=== PATIENT | female | born 2000 | race African-American/Black ===

== ENCOUNTER 2021-04-17 05:05 | Inpatient (IN) | payer MEDICAID, OTHER ==
[~2021-04-17] VITALS: Ht 149.9 cm; Wt 51.7 kg
[2021-04-17 07:15] LABS: CLARITY URINE CLOUDY (CLEAR); COLOR URINE YELLOW (YELLOW); KETONES URINE NEGATIVE (NEGATIVE); LEUKOCYTE ESTERASE URINE 3+ (NEGATIVE); NITRITE URINE NEGATIVE (NEGATIVE); OCCULT BLOOD URINE 1+ (NEGATIVE); PROTEIN URINE NEGATIVE (NEGATIVE); SPECIFIC GRAVITY URINE 1.007 (1.005-1.030)
[2021-04-17] MEDS: LACTATED RINGERS 1,000 ML IV SCH ×4 (07:21→22:23)
[2021-04-17] MEDS ORDERED: CEFAZOLIN 2,000 MG in DEXT 5% WATER 100 ML IV SCH ×2 (09:30→14:00)
[2021-04-17] MEDS: TERBUTALINE SULFATE 1MG/ML VIAL SUBCUT PRN ×2 (12:03→12:39)
[2021-04-18] MEDS: LACTATED RINGERS 1,000 ML IV SCH ×2 (03:39→21:06)
[2021-04-18] MEDS ORDERED: LIDOCAINE HCL 1% 20ML VIAL (Pyxis) INJ INFIL SCH (08:30)
[2021-04-18] MEDS ORDERED: METHYLERGONOVINE MALEATE 0.2 MG/ML IM PRN (08:30)
[2021-04-18] MEDS ORDERED: MISOPROSTOL 100MCG TABLET VG SCH (08:30)
[2021-04-18] MEDS ORDERED: CARBOPROST TROMETHAMINE 250 MCG/ML AMPUL IM PRN (08:30)
[2021-04-18] MEDS ORDERED: DEXT 5%/LR + PITOCIN 20UNITS/L 1,000 ML IV SCH (08:30)
[2021-04-18] MEDS ORDERED: NALOXONE HCL 0.4 MG/ML 1ML VIAL IM PRN (08:30)
[2021-04-18] MEDS ORDERED: BUTORPHANOL TARTRATE 2 MG/ML VIAL IV PRN (08:30)
[2021-04-18] MEDS ORDERED: PENICILLIN G POTASSIUM 5 MMU in DEXT 5% WATER 100 ML IV SCH (09:00)
[2021-04-18] MEDS ORDERED: LIDOCAINE HCL 2%/EPINEPHRINE 1:100,000 20 ML VIAL INFIL ONE (10:06)
[2021-04-18] MEDS ORDERED: EPHEDRINE SULFATE 50MG/ML VIAL ONE (10:06)
[2021-04-18 10:57] LABS: BASOPHILS % 0.3 % (0.0-2.0); EOSINOPHILS % 1.2 % (0.0-5.0); HEMOGLOBIN. 10.5 g/dL (12.0-16.0); LYMPHOCYTES % 19.7 % (20.0-50.0); MEAN CORPUSCULAR HEMOGLOBIN 30.8 pg (28.0-32.0); MEAN CORPUSCULAR VOLUME 90.8 fL (81.0-99.0); MEAN PLATELET VOLUME 7.3 fl (7.4-10.4); MONOCYTES % 5.4 % (2.0-8.0); NEUTROPHILS % 73.4 % (40.0-76.0); PLATELET 302 x1000/uL (130-400); RED BLOOD CELL COUNT 3.42 mill/uL (4.2-5.4)
[2021-04-18 11:00] LABS: CLARITY URINE CLOUDY (CLEAR); COLOR URINE YELLOW (YELLOW); KETONES URINE 2+ (NEGATIVE); LEUKOCYTE ESTERASE URINE 3+ (NEGATIVE); NITRITE URINE NEGATIVE (NEGATIVE); OCCULT BLOOD URINE TRACE (NEGATIVE); PROTEIN URINE NEGATIVE (NEGATIVE); SPECIFIC GRAVITY URINE 1.006 (1.005-1.030)
[2021-04-18 11:09] LABS: PARTIAL THROMBOPLASTIN TIME 27.2 sec (23.4-31.0); PROTHROMBIN TIME 11.1 sec (9.6-11.0)
[2021-04-18 11:15] LABS: *AMPHETAMINES SCREEN URINE NEGATIVE (NEGATIVE); *BARBITURATES SCREEN URINE NEGATIVE (NEGATIVE); *BENZODIAZEPINES SCREEN URINE NEGATIVE (NEGATIVE); *COCAINE SCREEN URINE NEGATIVE (NEGATIVE)
[2021-04-18] MEDS ORDERED: ROPIVACAINE HCL/PF EPIDURAL 200 ML EP SCH (11:15)
[2021-04-18 11:16] LABS: CANNABINOID URINE SCREEN NEGATIVE (NEGATIVE); METHADONE URINE SCREEN NEGATIVE (NEGATIVE); OPIATES URINE SCREEN NEGATIVE (NEGATIVE); PHENCYCLIDINE URINE SCREEN NEGATIVE (NEGATIVE)
[2021-04-18 11:35] LABS: HEPATITIS B SURFACE ANTIGEN NEGATIVE
[2021-04-18] MEDS ORDERED: PNV1TABL50 MT (11:59)
[2021-04-18] MEDS ORDERED: AZITHROMYCIN 500 MG in DEXT 5% WATER 250 ML IV SCH (12:00)
[2021-04-18] MEDS: PENICILLIN G POTASSIUM 2.5 MMU in DEXTROSE 5% WATER 50 ML IV SCH ×2 (16:35→21:07)
[2021-04-18] MEDS ORDERED: FENTANYL CITRATE/PF 50MCG/ML 2ML VIAL ONE (19:24)
[2021-04-19] MEDS: PENICILLIN G POTASSIUM 2.5 MMU in DEXTROSE 5% WATER 50 ML IV SCH (02:02)
[2021-04-19] MEDS ORDERED: HEMORRHOIDAL SUPP PR PRN (06:45)
[2021-04-19] MEDS ORDERED: ACETAMINOPHEN WITH CODEINE 300/30MG TABLET PO PRN (06:45)
[2021-04-19] MEDS ORDERED: BENZOCAINE/LANOLIN/ALOE VERA SPRAY TOP PRN (06:45)
[2021-04-19] MEDS ORDERED: DIPHENHYDRAMINE 25MG CAPSULE PO PRN (06:45)
[2021-04-19] MEDS ORDERED: DEXT 5%/LR + PITOCIN 20UNITS/L 1,000 ML IV SCH (06:45)
[2021-04-19] MEDS ORDERED: BISACODYL 10MG SUPP PR PRN (06:45)
[2021-04-19] MEDS ORDERED: IBUPROFEN 400MG TABLET PO PRN (06:45)
[2021-04-19] MEDS ORDERED: RHO(D) IMMUNE GLOBULIN 300 MCG/SYR IM PRN (06:45)
[2021-04-19] MEDS ORDERED: LANOLIN OINT 7GM TUBE TOP PRN (06:45)
[2021-04-19] MEDS ORDERED: IBUPROFEN 800MG TABLET PO PRN (06:45)
[2021-04-19 09:30] VITALS: BP 132/87
[2021-04-19] MEDS: PRENATAL VIT/FE FUMARATE/FA TABLET PO SCH (09:31)
[2021-04-19] MEDS: SIMETHICONE 80MG TABLET CHEW PO SCH ×2 (09:31→18:03)
[2021-04-19 16:00] VITALS: BP 93/59
[2021-04-19] MEDS ORDERED: DOCUSATE SODIUM 100MG CAPSULE PO SCH (21:00)
[2021-04-19 22:00] VITALS: BP 102/62
[2021-04-20 05:36] VITALS: BP 109/75
[2021-04-20 06:31] LABS: BASOPHILS % 0.3 % (0.0-2.0); EOSINOPHILS % 0.9 % (0.0-5.0); HEMATOCRIT. 29.1 % (36.0-48.0); HEMOGLOBIN. 9.5 g/dL (12.0-16.0); LYMPHOCYTES % 17.8 % (20.0-50.0); MEAN CORPUSCULAR VOLUME 91.5 fL (81.0-99.0); MEAN PLATELET VOLUME 7.5 fl (7.4-10.4); MONOCYTES % 6.1 % (2.0-8.0); NEUTROPHILS % 74.9 % (40.0-76.0); PLATELET 249 x1000/uL (130-400); RED BLOOD CELL COUNT 3.18 mill/uL (4.2-5.4); RED CELL DISTRIBUTION WIDTH 13.6 % (11.6-14.6)
[2021-04-20] MEDS ORDERED: METRONIDAZOLE 500MG TABLET PO NR (07:15)
[2021-04-20 08:00] VITALS: BP 118/68
[2021-04-20] MEDS: SIMETHICONE 80MG TABLET CHEW PO SCH ×4 (09:07→20:58)
[2021-04-20] MEDS: MAGNESIUM/ALUMINUM HYDROXIDE/SIMETHICONE 30ML UDC PO SCH ×4 (09:08→20:58)
[2021-04-20] MEDS: PRENATAL VIT/FE FUMARATE/FA TABLET PO SCH (09:08)
[2021-04-20 15:20] VITALS: BP 103/68
[2021-04-20 22:00] VITALS: BP 115/66
[2021-04-21 04:10] VITALS: BP 105/71
[2021-04-21] MEDS ORDERED: IBUP-2030 PO (06:22)
[2021-04-21 07:00] VITALS: BP 104/74
== END 2021-04-21 07:45 | disposition home or self-care (01) | DRG 560 ==
LOC: 8 EST LDRP 05:05 → OBSVTOIN 05:05 → 8 EST A/PP 04-18 07:05 → 8 EST LDRP 04-18 08:43 → 8EST 04-19 09:18
PROVIDERS: ADMIT Obstetrics & Gynecology; ATTEND Obstetrics & Gynecology
PROC: 10E0XZZ Delivery of Products of Conception, External Approach (ICD-10-PCS; principal; 2021-04-19)
PROC: 0KQM0ZZ Repair Perineum Muscle, Open Approach (ICD-10-PCS; 2021-04-19)
PROC: 3E0234Z Introduction of Serum, Toxoid and Vaccine into Muscle, Percutaneous Approach (ICD-10-PCS; 2021-04-19)
PROC: 3E0R3BZ Introduction of Anesthetic Agent into Spinal Canal, Percutaneous Approach (ICD-10-PCS; 2021-04-19)
PROC: 00HU33Z Insertion of Infusion Device into Spinal Canal, Percutaneous Approach (ICD-10-PCS; 2021-04-19)
DX: O42.913 Preterm premature rupture of membranes, unspecified as to length of time between rupture and onset of labor, third trimester (principal); Z37.0 Single live birth; O60.14X0 Preterm labor third trimester with preterm delivery third trimester, not applicable or unspecified; O41.03X0 Oligohydramnios, third trimester, not applicable or unspecified; O98.32 Other infections with a predominantly sexual mode of transmission complicating childbirth; A59.9 Trichomoniasis, unspecified; D64.9 Anemia, unspecified; O26.893 Other specified pregnancy related conditions, third trimester; O70.1 Second degree perineal laceration during delivery; Z20.822 Contact with and (suspected) exposure to COVID-19; O77.0 Labor and delivery complicated by meconium in amniotic fluid; O90.81 Anemia of the puerperium; Z3A.35 35 weeks gestation of pregnancy; Z67.11 Type A blood, Rh negative
CPT/HCPCS: 36415; 76815; 76818; 80305; 81003; 85025; 86592; 86703; 86762; 86850; 86870; 86886; 86900; 87340; 87426; 90384; 96360; 96372; 99281; J0456; J0690; J2540; J2590; J3010; J3105; J3490; J7060